=== PATIENT | female | born 1955 | race Two or more races ===

== ENCOUNTER 2016-09-25 07:03 | Emergency (ER) | payer BC ==
--- NOTE | 2016-09-25 07:39 | UC ---
Skin Complaint HPI - HPI Summary HPI Summary: 60 yo female presents with pruritic rash x days was started on zovirax which she started yesterday for possible shingles NO PAIN pt states she had shingles years ago - History of Current Complaint Chief Complaint: UCRash Time Seen by Provider: 09/25/16 07:19 Stated Complaint: SKIN COMPLAINT Hx Obtained From: Patient Hx Last Menstrual Period: n/a Onset/Duration: Gradual Onset, Lasting Days Timing: Constant Onset Severity: Mild Current Severity: Mild Pain Intensity: 0 Pain Scale Used: 0-10 Numeric Location: Other - right upper arm Character: Pruritus, Redness, Raised Aggravating: Touch Alleviating: Nothing Associated Signs & Symptoms: Positive: Rash - Allergy/Home Medications Allergies/Adverse Reactions: Allergies Allergy/AdvReac Type Severity Reaction Status Date / Time No Known Allergies Allergy Verified 09/25/16 07:13 Home Medications: Home Medications Acyclovir* [Zovirax TAB*] 1,000 mg PO TID 09/25/16 [History Confirmed 09/25/16] Cholecalciferol [Vitamin D] 5,000 unit PO SEE INSTRUCTIONS 09/25/16 [History Confirmed 09/25/16] Review of Systems Constitutional: Negative Skin: Rash Eyes: Negative ENT: Negative Respiratory: Negative Cardiovascular: Negative Gastrointestinal: Negative Genitourinary: Negative Motor: Negative Neurovascular: Negative Musculoskeletal: Negative Neurological: Negative Psychological: Negative All Other Systems Reviewed And Are Negative: Yes PMH/Surg Hx/FS Hx/Imm Hx Previously Healthy: Yes - Surgical History Surgical History: Yes Surgery Procedure, Year, and Place: beast reduction 2013 - Family History Known Family History: Positive: Hypertension Negative: Cardiac Disease, Diabetes - Social History Alcohol Use: None Substance Use Type: None Smoking Status (MU): Never Smoked Tobacco Have You Smoked in the Last Year: No Physical Exam Triage Information Reviewed: Yes Appearance: Well-Appearing, No Pain Distress, Well-Nourished Vital Signs: Initial Vital Signs Temp 98.2 F 09/25/16 07:06 Pulse 60 09/25/16 07:06 Resp 20 09/25/16 07:06 BP 121/81 09/25/16 07:06 Vital Signs Reviewed: Yes Eyes: Positive: Conjunctiva Clear ENT: Negative: Hearing grossly normal, Nasal congestion, Nasal drainage, Trismus , Muffled/hoarse voice Neck: Positive: Supple, Nontender, No Lymphadenopathy Respiratory: Positive: Lungs clear, Normal breath sounds, No respiratory distress, No accessory muscle use Cardiovascular: Positive: RRR, No Murmur Musculoskeletal: Positive: Strength Intact, ROM Intact, No Edema Neurological: Positive: Alert Skin Exam: Normal Course/Dx - Diagnoses Provider Diagnoses: rash-suspect contact dermatitis. ? shingles Discharge - Discharge Plan Condition: Stable Disposition: HOME Prescriptions: Triamcinolone 0.5% CREAM(NF) [Triamcinolone 0.5% CREAM*] 1 applic TOPICAL QID PRN #[id number] tube PRN Reason: Itching Patient Education Materials: Contact Dermatitis (ED), Shingles (ED) Referrals: Luis M Muniz MD [Primary Care Provider] - Additional Instructions: A swab is pending to determine if this is shingles I would continue your antiviral pending the result this may be a contact dermatitis apply steroid cm to rash upto 4x day as needed Images Front/Back of Body, Lg ([place]): 1 - rash/red/raised/ one area appears slightly vesicular but for the most part looks most c/w contact dermatitis
[2016-09-25 07:51] VITALS: BP 121/81
[2016-09-27 00:53] LABS: Varicella Zoster Result Negative (Negative)
== END 2016-09-25 07:49 | disposition home or self-care (01) ==
LOC: UCCORT 07:03
DX: R21 Rash and other nonspecific skin eruption (principal)
CPT/HCPCS: 87798; 99212; G0463